=== PATIENT | female | born 1965 | race Caucasian/White ===

== ENCOUNTER → 2016-12-25 | Outpatient (CLI) | payer BC ==
--- NOTE | 2016-12-28 07:35 | MM ---
Reason for exam: follow-up at short interval from prior study. Last mammogram was performed 8 months ago. History: Benign US breast localization RT of the right breast, May 12, 2016. US biopsy breast VAD RT of the right breast, April 29, 2016. Physical Findings: Nurse did not find any significant physical abnormalities on exam. MG 3D Diag Mammo W/Cad RT CC, MLO, and XCCL view(s) were taken of the right breast. Prior study comparison: April 29, 2016, right breast MG diagnostic mammo RT wo CAD. There are scattered fibroglandular densities. Post operative changes in the right breast. No mass. These results were verbally communicated with the patient and result sheet given to the patient on 12/25/16. ASSESSMENT: Benign, BI-RAD 2 RECOMMENDATION: Routine screening mammogram of both breasts in 5 months. Back on schedule for May 2017.
== END | disposition home or self-care (01) ==
LOC: RADMAMWWP 10:26
PROVIDERS: ATTEND Surgery
DX: Z48.89 Encounter for other specified surgical aftercare (principal); R92.8 Other abnormal and inconclusive findings on diagnostic imaging of breast
CPT/HCPCS: G0206; G0279

== ENCOUNTER → 2017-06-08 | Outpatient (CLI) | payer BC ==
--- NOTE | 2017-06-09 10:36 | MM ---
Reason for exam: screening (asymptomatic). Last mammogram was performed 5 months ago. History: Benign US breast localization RT of the right breast, May 12, 2016. US biopsy breast VAD RT of the right breast, April 29, 2016. Physical Findings: A clinical breast exam by your physician is recommended on an annual basis and results should be correlated with mammographic findings. MG 3D Screening Mammo W/Cad Bilateral CC and MLO view(s) were taken. Prior study comparison: April 01, 2016, mammogram. The breast tissue is almost entirely fat. No significant changes when compared with prior studies. ASSESSMENT: Benign, BI-RAD 2 RECOMMENDATION: Routine screening mammogram of both breasts in 1 year. Manage patient on a clinical basis.
== END | disposition home or self-care (01) ==
LOC: RADMAMWWP 08:32
PROVIDERS: ATTEND Family Medicine
DX: Z12.31 Encounter for screening mammogram for malignant neoplasm of breast (principal)
CPT/HCPCS: 77063; G0202

== ENCOUNTER → 2022-05-13 | Outpatient (CLI) | payer BC ==
--- NOTE | 2022-05-13 12:25 | FL ---
EXAMINATION TYPE: FL barium swallow DATE OF EXAM: 05/13/2022 CLINICAL HISTORY: Dysphagia. Patient had negative endoscopy roughly 2 years ago. Epigastric pain with some improvement on recent samples of antireflux medication. TECHNIQUE: A double contrast esophagram is performed utilizing air and barium. A total of 24 second s of fluoroscopic time was utilized during procedure and 42 images obtained COMPARISON: None FINDINGS: The esophagus shows satisfactory motility and emptying into the stomach. No diverticulum i s seen. No evidence of fixed hiatal hernia or stricture noted. Small sliding-type hiatal hernia. No s ignificant gastroesophageal reflux was seen during real time performance of this study. Surgical clip s from cholecystectomy are incidentally noted. IMPRESSION: Small sliding-type hiatal hernia.
--- NOTE | 2022-05-13 12:27 | XR ---
EXAMINATION TYPE: XR chest special 4+ views DATE OF EXAM: 05/13/2022 CLINICAL HISTORY: Dysphasia and cough. TECHNIQUE: Frontal , both oblique, and lateral views of the chest are obtained. COMPARISON: None FINDINGS: Low lung volumes are present. There is no focal air space opacity, pleural effusion, or pn eumothorax seen. The cardiac silhouette size is within normal limits. The osseous structures are i ntact. Surgical clips noted in the overlying the right breast. IMPRESSION: No acute cardiopulmonary process.
== END | disposition home or self-care (01) ==
LOC: RADUSWWP 10:06
PROVIDERS: ATTEND Otolaryngology
DX: K44.9 Diaphragmatic hernia without obstruction or gangrene (principal)
CPT/HCPCS: 71048; 74220